=== PATIENT | male | born 1975 | race Hispanic/Latino ===

== ENCOUNTER → 2018-04-09 15:54 | Outpatient (CLI) | payer MEDICARE, MEDICAID, SELFPAY ==
--- NOTE | 2018-04-09 15:57 | DI.RAD.S_ITS ---
PROCEDURE: XR CHEST 2V INDICATIONS: left axillary and upper chest pain TECHNIQUE: 2 views of the chest were acquired. COMPARISON: None. FINDINGS: Surgical changes and devices: None. Lungs and pleura: No pleural effusions or pneumothorax. Lungs are clear. Mediastinum: Mediastinal contours are normal. Heart size is normal. Bones and chest wall: No suspicious bony abnormalities. Soft tissues appear unremarkable. IMPRESSION: No acute pulmonary process. Dictated by: Dina Woodard M.D. on 04/09/2018 at 17:03 Approved by: Dina Woodard M.D. on 04/09/2018 at 17:04
[2018-04-09 17:37] LABS: Add Manual Diff / Slide Review NO; Basophils Percent Auto 0.8 % (0-2); Eosinophils Percent Auto 2.2 % (2-4); Hematocrit 42.4 % (41-53); Lymphocytes Percent Auto 45.2 % (25-40); Mean Corpuscular HGB Conc 35.3 % (30-36); Mean Corpuscular Hemoglobin 28.8 PG (26-34); Mean Corpuscular Volume 81.6 fL (80-100); Monocytes Percent Auto 5.9 % (3-14); Neutrophils Absolute Auto 3100 /uL (3000-5900); Neutrophils Percent Auto 45.9 % (50-75); Platelet Count 171 X10^3/uL (150-400); Red Cell Distribution Width 13.2 % (11.6-14.8); White Blood Cell Count 6.8 X10^3/uL (4.5-11.0)
[2018-04-09 17:54] LABS: Alanine Aminotransferase 97 IU/L (21-72); Albumin 4.7 g/dL (3.5-5.0); Albumin Globulin Ratio 1.5 (1.0-2.8); Alkaline Phosphatase 67 U/L (38-126); Aspartate Aminotransferase 74 IU/L (17-59); Bilirubin Total 1.1 mg/dL (0.2-1.3); Blood Urea Nitrogen 18 mg/dL (9-20); Calcium 9.7 mg/dL (8.4-10.2); Carbon Dioxide 27 mmol/L (22-32); Chloride 104 mmol/L (98-107); Estimated Glomerular Filt Rate > 60.0 mL/min (>60); Globulin 3.2 g/dL (1.7-4.1); Glucose 124 mg/dL (70-100); HEMOLYSIS < 15 (0-50); Potassium 4.3 mmol/L (3.4-5.1); Sodium 144 mmol/L (137-145); Total Protein 7.9 g/dL (6.3-8.2)
== END ==
PROVIDERS: Visit Provider Physician Assistant
DX: M79.1 Myalgia (principal); M79.622 Pain in left upper arm; R07.89 Other chest pain
CPT/HCPCS: 36415; 71046; 80053; 85025

== ENCOUNTER → 2018-04-10 08:36 | Outpatient (CLI) | payer MEDICARE, MEDICAID, SELFPAY | PROVIDERS: Visit Provider Physician Assistant | DX: R73.01 Impaired fasting glucose (principal) ==

== ENCOUNTER → 2018-10-25 12:48 | Outpatient (CLI) | payer MEDICARE, MEDICAID, SELFPAY ==
[2018-10-25 13:25] LABS: Add Manual Diff / Slide Review NO; Basophils Absolute Auto 0 /uL (0-100); Basophils Percent Auto 0.7 % (0-2); Eosinophils Absolute Auto 100 /uL (0-450); Eosinophils Percent Auto 2.1 % (2-4); Hematocrit 42.2 % (41-53); Hemoglobin 14.7 g/dL (13.5-17.5); Lymphocytes Absolute Auto 2600 /uL (1100-4500); Lymphocytes Percent Auto 40.1 % (25-40); Mean Corpuscular HGB Conc 34.8 % (30-36); Mean Corpuscular Hemoglobin 28.3 PG (26-34); Mean Corpuscular Volume 81.3 fL (80-100); Monocytes Absolute Auto 400 /uL (0-900); Monocytes Percent Auto 5.5 % (3-14); Neutrophils Absolute Auto 3300 /uL (1500-7000); Neutrophils Percent Auto 51.6 % (50-75); Platelet Count 160 X10^3/uL (150-400); Red Blood Cell Count 5.19 X10^6/uL (4.5-5.9); Red Cell Distribution Width 13.5 % (11.6-14.8); White Blood Cell Count 6.4 X10^3/uL (4.5-11.0)
[2018-10-25 13:36] LABS: Hemoglobin A1C% w Est Avg Glu 9.5 % (4.0-6.0)
[2018-10-25 15:47] LABS: Alanine Aminotransferase 67 IU/L (21-72); Albumin 4.6 g/dL (3.5-5.0); Albumin Globulin Ratio 1.4 (1.0-2.8); Alkaline Phosphatase 83 U/L (38-126); Aspartate Aminotransferase 39 IU/L (17-59); BUN Creatinine Ratio 21.3 (6-22); Bilirubin Total 0.8 mg/dL (0.2-1.3); Blood Urea Nitrogen 17 mg/dL (9-20); Calcium 9.8 mg/dL (8.4-10.2); Carbon Dioxide 24 mmol/L (22-32); Chloride 101 mmol/L (98-107); Estimated Glomerular Filt Rate > 60.0 mL/min (>60); Globulin 3.3 g/dL (1.7-4.1); Glucose 264 mg/dL (70-100); HEMOLYSIS < 15 (0-50); Potassium 4.3 mmol/L (3.4-5.1); Sodium 139 mmol/L (137-145); Total Protein 7.9 g/dL (6.3-8.2)
== END ==
PROVIDERS: Visit Provider Physician Assistant
DX: E11.9 Type 2 diabetes mellitus without complications (principal)
CPT/HCPCS: 36415; 80053; 83036; 85025

== ENCOUNTER 2018-11-29 16:49 | Emergency (ER) | payer MEDICARE, MEDICAID, SELFPAY ==
--- NOTE | 2018-11-29 16:56 | PC.NURSE ---
went to look for patient. reported that patient went out to his car. registration will call when patient returns.
== END 2018-11-29 17:40 | disposition left against medical advice (07) ==
PROVIDERS: Emergency Provider Emergency Medicine
DX: Z53.21 Procedure and treatment not carried out due to patient leaving prior to being seen by health care provider (principal)
CPT/HCPCS: 99281

== ENCOUNTER 2018-11-29 19:07 | Emergency (ER) | payer MEDICARE, MEDICAID, SELFPAY ==
[2018-11-29 19:14] VITALS: BP 131/87; PULSE 93; RESP 16; TEMP 36.4; O2SAT 95; BMI 29.0
[2018-11-29] MEDS: KETOROLAC 60 MG/2 ML VIAL IM (19:56)
--- NOTE | 2018-11-29 20:14 | ED_ITS ---
HPI - Skin/Abscess/Foreign Bdy <BRIDGER Mckoy - Last Filed: 11/29/18 21:27> General Chief complaint: Skin/Abscess/Foreign Body Stated complaint: left side arm pit pain Time Seen by Provider: 11/29/18 19:39 Source: patient Mode of arrival: ambulatory Limitations: no limitations History of Present Illness HPI narrative: Patient is a 43-year-old male nonsmoker with history of tonsille ctomy who presents with a chief complaint of swollen lymph nodes in his left axilla. He states that they are painful here. He states this is been going on for a year. He also complains of some swollen lymph nodes in his right axilla. He denies any overt fevers nausea vomiting or diarrhea or abdominal pain. he states this is been going on for a year. Chart review reveals that he has been seen sporadically for this. He has not followed up with primary care provider recently. He took ibuprofen yesterday for the pain, has not taken anything today. He denies any chest pain cough or shortness of breath. does complain of a small wound in his left axilla, which occurred after shaving. Related Data Home Medications Medication Instructions Recorded Confirmed [facility] Allergy med See Rx Instructions .ROUTE .COMPLEX 04/17/18 10/25/18 Previous Rx's Medication Instructions Recorded naproxen 500 mg tablet 500 mg PO BID #20 tab 04/03/18 ketorolac 10 mg PO Q4-6H PRN #8 tab 11/29/18 Allergies Allergy/AdvReac Type Severity Reaction Status Date / Time No Known Drug Allergies Allergy Verified 11/29/18 19:21 Review of Systems <BRIDGER Mckoy - Last Filed: 11/29/18 21:27> Constitutional Denies chills, Denies fever(s), Denies lethargy and Denies weakness Cardiovascular Denies chest pain, Denies irregular heart rhythm, Denies lightheadedness, Denies palpitations, Denies dyspnea, Denies dyspnea on exertion and Denies orthopnea Respiratory Denies cough, Denies dyspnea, Denies dyspnea on exertion and Denies wheezing Gastrointestinal Gastrointestinal: Denies abdominal pain, Denies change in bowel habits, Denies diarrhea, Denies nausea and Denies vomiting Integumentary/Breasts Reports system reviewed and no additional complaints, except as docu Neurologic Denies weakness Endocrine Denies palpitations Hematologic/Lymphatic Reports system reviewed and no additional complaints, except as docu Allergic/Immunologic Denies wheezing PFSH <BRIDGER Mckoy - Last Filed: 11/29/18 21:27> Medical History (Updated 11/29/18 @ 20:14 by BRIDGER Mckoy) History of blood transfusion (Resolved 1997) No pertinent past medical history (Resolved) Surgical History (Updated 04/13/18 @ 13:23 by Lore Cramer LPN) History of dental surgery (Resolved) Hx of tonsillectomy (Resolved 2006) Social History Smoking Status: Never smoker second hand exposure: Yes 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.) substance use type: does not use Social History Smoking Status: Never smoker second hand exposure: Yes 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.) substance use type: does not use Exam <BRIDGER Mckoy - Last Filed: 11/29/18 21:27> Initial Vital Signs Initial Vital Signs: Vital Signs Temperature 97.6 F 11/29/18 19:14 Pulse Rate 93 H 11/29/18 19:14 Respiratory Rate 16 11/29/18 19:14 Blood Pressure 131/87 11/29/18 19:14 Pulse Oximetry 95 11/29/18 19:14 Const General: cooperative and well developed Nutritional Appearance: well nourished Orientation: alert, awake, oriented x3 and not confused Neck Neck: normal visual inspection Lymphatic: No lymphadenopathy Chest Breast Palpation: axillary lymphadenopathy (bilateral) Skin Lesions: lesion noted (A 2 mm lesion noted left axilla. No spreading erythema or drainage noted.) Neuro General: alert, oriented x3, gait normal and no focal motor deficits Speech: speech normal Extrem General: full ROM, no clubbing, cyanosis or edema, no pedal edema and no calf tenderness Psych Appearance: grossly normal Mental Status: mental status grossly normal Speech and Movement: speech and movement normal <Camron Aaron DO - Last Filed: 11/30/18 01:09> Initial Vital Signs Initial Vital Signs: Vital Signs Temperature 97.6 F 11/29/18 19:14 Pulse Rate 93 H 11/29/18 19:14 Respiratory Rate 16 11/29/18 19:14 Blood Pressure 131/87 11/29/18 19:14 Pulse Oximetry 95 11/29/18 19:14 Course <BRIDGER Mckoy - Last Filed: 11/29/18 21:27> Orders Ordered: Discontinued Medications Ketorolac Tromethamine (Toradol) 60 mg IM NOW ONE Stop: 11/29/18 19:51 Last Admin: 11/29/18 19:56 Dose: 60 mg Vital Signs - 8 hr 11/29/18 19:14 11/29/18 20:30 Temperature 97.6 F Pulse Rate 93 H 84 Respiratory Rate 16 16 Blood Pressure 131/87 116/87 Pulse Oximetry 95 97 <Carmon Aaron DO - Last Filed: 11/30/18 01:09> Orders Ordered: Discontinued Medications Ketorolac Tromethamine (Toradol) 60 mg IM NOW ONE Stop: 11/29/18 19:51 Last Admin: 11/29/18 19:56 Dose: 60 mg Vital Signs - 8 hr 11/29/18 19:14 11/29/18 20:30 Temperature 97.6 F Pulse Rate 93 H 84 Respiratory Rate 16 16 Blood Pressure 131/87 116/87 Pulse Oximetry 95 97 MDM - Skin/Abscess/Foreign Bdy <BRIDGER Mckoy - Last Filed: 11/29/18 21:27> MDM Narrative Medical decision making narrative: The patient is a 43-year-old male who presents with lymphadenopathy. He has not been taking anything regularly for this. He has had for quite some time in a followup his primary care physician. He received some Toradol in the emergency department gave him a prescription of toradol with the understanding that using other NSAIDs. He does have a small wound, but no signs of infection with no spreading erythema or exudate. he is afebrile and hemodynamically stable the emergency department. I did encourage the patient to follow up with his PCP regarding his lymph nodes we discussed that he might need a biopsy if they do not normalize soon. I encouraged him to follow up with PCP regarding this. Discussed come back to emergency department for acute concerns such as chest pain shortness of breath concern or heart attack or stroke. Patient has no questions or concerns upon discharge. Discharge Plan Departure Patient Disposition: Home Clinical Impression: Lymphadenopathy Discharge Date/Time: 11/29/18 20:30 Interventions: ED Discharge Assessment Last Done: 11/29/18 20:30 Instructions: DI for Lymphadenopathy Activity Restrictions/Additional Instructions: I have given you a prescription for Toradol. Do not combine it with ibuprofen Aleve or any other NSAIDs. Please follow up with your primary care provider if this persists as you need to be evaluated if it does not go away as there are possible serious causes of swollen lymph nodes. Come back to the emergency department for any acute concerns such as chest pain or shortness of breath. Prescriptions: New ketorolac 10 mg tablet 10 mg PO Q4-6H PRN (Reason: pain) Qty: 8 RF: 0 No Action [facility] Allergy med See Patient Comments .ROUTE .COMPLEX RF: 0 naproxen 500 mg tablet 500 mg PO BID Qty: 20 RF: 1 Referrals: Maty Dee PA-C [Primary Care Provider] - <Camron Aaron DO - Last Filed: 11/30/18 01:09> [facility] Attending Danni Attestation: I was immediately available in the department for consultation. Documentation has been reviewed. I agree with assessment and plan.
[2018-11-29 20:30] VITALS: BP 116/87; PULSE 84; RESP 16; O2SAT 97
== END 2018-11-29 20:30 | disposition home or self-care (01) ==
PROVIDERS: Emergency Provider Nurse Practitioner Family; PCP Physician Assistant
DX: R59.1 Generalized enlarged lymph nodes (principal); M79.622 Pain in left upper arm
CPT/HCPCS: 96372; 99282; 99283; J1885